=== PATIENT | female | born 1965 | race Caucasian/White ===

== ENCOUNTER → 2016-12-19 | Outpatient (CLI) | payer OTHER | LOC: CCC 07:18 | DX: E03.9 Hypothyroidism, unspecified (principal) | CPT/HCPCS: 36415; 84443 ==

== ENCOUNTER → 2017-01-29 | Outpatient (CLI) | payer OTHER | LOC: CCC 07:57 | DX: E03.9 Hypothyroidism, unspecified (principal) | CPT/HCPCS: 36415; 84443 ==

== ENCOUNTER → 2017-04-16 | Outpatient (CLI) | payer OTHER ==
[2017-04-16 09:07] LABS: THYROID STIMULATING HORMONE 2.46 uIU/mL (0.47-4.68)
== END ==
LOC: CCC 07:14
DX: E03.9 Hypothyroidism, unspecified (principal)
CPT/HCPCS: 36415; 84439; 84443

== ENCOUNTER → 2017-04-25 | Outpatient (CLI) | payer OTHER ==
--- NOTE | 2017-04-25 13:08 | RADIOLOGY REPORT (SQ) ---
EXAM DESCRIPTION: FOOT RIGHT COMPLETE COMPLETED DATE/TIME: 04/25/2017 11:06 am REASON FOR STUDY: PAIN IN RIGHT ANKLE AND JOINTS OF RIGHT FOOT M25.571 PAIN IN RIGHT ANKLE AND JOIN TS OF RIGHT FOOT COMPARISON: None. NUMBER OF VIEWS: Three views. TECHNIQUE: AP, lateral and oblique radiographic images acquired of the right foot. LIMITATIONS: None. FINDINGS: MINERALIZATION: Normal. BONES: No acute fracture or dislocation. No worrisome bone lesions. JOINTS: No effusions. SOFT TISSUES: Diffuse dorsal right foot soft tissue swelling. No foreign body. OTHER: No other significant finding. IMPRESSION: Diffuse dorsal right foot soft tissue swelling. No underlying fracture. No radiopaque foreign body or soft tissue gas TECHNICAL DOCUMENTATION: JOB ID: [id number] [employer]- All Rights Reserved
== END ==
LOC: OD 10:50
DX: M25.571 Pain in right ankle and joints of right foot (principal); M79.89 Other specified soft tissue disorders; W17.89XA Other fall from one level to another, initial encounter

== ENCOUNTER → 2018-10-17 | Outpatient (CLI) | payer OTHER ==
[2018-10-17 09:54] LABS: ABSOLUTE EOSINOPHILS # (AUTO) 0.2 10^3/uL (0.0-0.6); ABSOLUTE MONOCYTES (AUTO) 0.4 10^3/uL (0.1-1.4); ABSOLUTE NEUT (AUTO) 4.9 10^3/uL (1.7-8.2); BASOPHILS % (AUTO) 0.3 % (0-2); EOSINOPHILS % (AUTO) 2.1 % (0-6); HEMATOCRIT 39.1 % (36.0-47.0); HEMOGLOBIN 13.2 g/dL (12.0-15.5); LYMPHOCYTES % (AUTO) 26.6 % (13-45); MEAN CORPUSCULAR HEMOGLOBIN 28.7 pg (27.0-33.4); MEAN CORPUSCULAR HGB CONC 33.7 g/dL (32.0-36.0); MEAN CORPUSCULAR VOLUME 85 fl (80-97); MONOCYTES % (AUTO) 5.7 % (3-13); PLATELET COUNT 277 10^3/uL (150-450); RED CELL DISTRIBUTION WIDTH 13.9 % (11.5-14.0); SEGMENTED NEUTROPHILS % (AUTO) 65.3 % (42-78); TOTAL CELLS COUNTED % (AUTO) 100 %; WHITE BLOOD COUNT 7.6 10^3/uL (4.0-10.5)
[2018-10-17 10:06] LABS: BLOOD UREA NITROGEN 14 mg/dL (7-20); CHLORIDE 105 mmol/L (98-107); GLUCOSE 89 mg/dL (75-110); POTASSIUM 4.6 mmol/L (3.6-5.0)
[2018-10-17 10:07] LABS: ALANINE AMINOTRANSFERASE 10 U/L (9-52); ALBUMIN 3.8 g/dL (3.5-5.0); ALKALINE PHOSPHATASE 72 U/L (38-126); ANION GAP 8 (5-19); ASPARTATE AMINO TRANSFERASE 16 U/L (14-36); BILIRUBIN,DIRECT 0.2 mg/dL (0.0-0.4); BILIRUBIN,TOTAL 0.3 mg/dL (0.2-1.3); CARBON DIOXIDE 28 mmol/L (22-30); CHOLESTEROL 210.73 mg/dL (0-200); SODIUM 140.7 mmol/L (137-145); TOTAL PROTEIN 6.3 g/dL (6.3-8.2); TRIGLYCERIDES 169 mg/dL (<150)
[2018-10-17 10:18] LABS: DIRECT LDL 150 mg/dL (<100)
[2018-10-17 10:19] LABS: VLDL CHOLESTEROL 33.8 mg/dL (10-31)
== END ==
LOC: OD 08:34
DX: E03.8 Other specified hypothyroidism (principal)
CPT/HCPCS: 36415; 80053; 80061; 83036; 84443; 85025

== ENCOUNTER → 2018-10-24 | Outpatient (CLI) | payer OTHER ==
--- NOTE | 2018-10-24 12:07 | RADIOLOGY REPORT (SQ) ---
EXAM DESCRIPTION: KNEE RIGHT 4 VIEWS COMPLETED DATE/TIME: 10/24/2018 9:35 am REASON FOR STUDY: PAIN IN RIGHT KNEE M25.561 PAIN IN RIGHT KNEE COMPARISON: None. NUMBER OF VIEWS: Four views. TECHNIQUE: AP, lateral, and both oblique radiographic images acquired of the right knee. LIMITATIONS: None. FINDINGS: MINERALIZATION: Normal. BONES: No acute fracture or dislocation. No worrisome bone lesions. JOINT: No effusion. SOFT TISSUES: No soft tissue swelling. No radio-opaque foreign body. OTHER: No other significant finding. IMPRESSION: NEGATIVE STUDY OF THE RIGHT KNEE. NO RADIOGRAPHIC EVIDENCE OF ACUTE INJURY. TECHNICAL DOCUMENTATION: JOB ID: [id number] [employer]- All Rights Reserved Reading location - IP/workstation name: [email or web address]
== END ==
LOC: CCC 09:14
DX: M25.561 Pain in right knee (principal)

== ENCOUNTER 2020-03-13 12:52 | Emergency (ER) | payer OTHER ==
[2020-03-13] MEDS ORDERED: OXYCODONE-ACETAMINOPHEN 5-325 MG TABLET PO ONE (13:06)
--- NOTE | 2020-03-13 13:07 | ER Document Report ---
HPI - HPI Time Seen by Provider: 03/13/20 13:05 Pain Level: 3 Past Medical History - Social History Smoking Status: Never Smoker Chew tobacco use (# tins/day): No Frequency of alcohol use: None Drug Abuse: None Patient has homicidal ideation: No Vertical Provider Document - INFECTION CONTROL TRAVEL OUTSIDE OF THE [place] IN LAST 30 DAYS: No Course - Vital Signs Vital signs: Temp Pulse Resp BP Pulse Ox 98.4 F 72 20 127/70 H 97 03/13/20 13:02 03/13/20 13:00 03/13/20 13:00 03/13/20 13:00 03/13/20 13:00 Discharge - Discharge Referrals: [facility] [[facility] Provider] - Follow up as needed
[2020-03-13] MEDS ORDERED: KETOROLAC TROMETHAMINE INJ/PF 30 MG/1 ML SDV IV ONE (13:40)
[2020-03-13] MEDS ORDERED: NORMAL SALINE 1000 ML 1,000 ML IV ONE (13:40)
--- NOTE | 2020-03-13 13:46 | RADIOLOGY REPORT (SQ) ---
EXAM DESCRIPTION: FOREARM LEFT COMPLETED DATE/TIME: 03/13/2020 12:27 pm REASON FOR STUDY: fall, bone tenderness COMPARISON: None. NUMBER OF VIEWS: Two views. TECHNIQUE: Two radiographic images acquired of the left forearm, including elbow and wrist in at [facility] one projection. LIMITATIONS: None. FINDINGS: MINERALIZATION: Normal. BONES: Acute horizontal fractures through the mid to distal midshaft radius and ulna. Over riding of the radial fracture approximately 1.5 cm. Radial angulation of the distal fracture fragment. There is a nondisplaced fracture of the ulnar styloid process. SOFT TISSUES: Soft tissue swelling. No radiopaque foreign body. OTHER: No other significant finding. IMPRESSION: Acute fractures through the mid to distal midshaft radius and ulna. Overriding and mild angulation of the radius. Acute fracture of the ulnar styloid process, nondisplaced. TECHNICAL DOCUMENTATION: JOB ID: [id number] 2010 [employer]- All Rights Reserved Reading location - IP/workstation name: [email or web address]
--- NOTE | 2020-03-13 13:58 | ER Document Report ---
ED Extremity Problem, Upper - General Chief Complaint: Arm Pain Stated Complaint: FALL/LEFT ARM PAIN,SWELLING Time Seen by Provider: 03/13/20 13:05 Primary Care Provider: MARCO A PARISI MD [ACTIVE PROVISIONAL STAFF] - Follow up in 3-5 days (Call Sunday to schedule an appointment this week.) Mode of Arrival: Ambulatory Information source: Patient Notes: This 54-year-old female patient comes emergency room with left forearm pain after sustaining a fall when she tripped over a neighbor's dog. She complains of severe pain to the mid forearm, some pain at the wrist. She also has numbness to all of the fingers with the fifth finger being slightly less numb than fingers 1 through 4. TRAVEL OUTSIDE OF THE [place] 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 Lives with: Alone Family History: Reviewed & Not Pertinent Patient has homicidal ideation: No Endocrine Medical History: Reports: Hx Hypothyroidism Past Surgical History: Reports: Hx Cholecystectomy, Hx Tubal Ligation Review of Systems - Review of Systems Constitutional: No symptoms reported EENT: No symptoms reported Cardiovascular: No symptoms reported Respiratory: No symptoms reported Gastrointestinal: No symptoms reported Genitourinary: No symptoms reported Female Genitourinary: Post menopausal Musculoskeletal: No symptoms reported Skin: No symptoms reported Hematologic/Lymphatic: No symptoms reported Neurological/Psychological: No symptoms reported Physical Exam - Vital signs Vitals: Temp Pulse Resp BP Pulse Ox 98.4 F 72 20 127/70 H 97 03/13/20 13:00 03/13/20 13:00 03/13/20 13:00 03/13/20 13:00 03/13/20 13:00 Interpretation: Normal - General General appearance: Alert, Anxious In distress: Mild - HEENT Head: Normocephalic, Atraumatic Eyes: Normal Pupils: PERRL - Respiratory Respiratory status: No respiratory distress Breath sounds: Normal - Cardiovascular Rhythm: Regular Heart sounds: Normal auscultation Murmur: No - Abdominal Inspection: Normal Tenderness: Nontender - Back Back: Normal - Extremities General upper extremity: Other General lower extremity: Normal inspection Forearm: Tender - Tender swelling and palpable deformity to the mid radial forearm. Wrist: Tender - There is tender swelling to the left ulnar wrist. Radial pulse is intact. Hand: Other - There is numbness in the median nerve distribution of the left hand. The first second and third fingers are very numb as is the radial side of the fourth finger. She states she feels some numbness to the ulnar side of the fourth finger and the fifth finger, but on repeat exams it is quite obvious that it is median nerve distribution to her numbness. - Neurological Neuro grossly intact: Yes - Psychological Associated symptoms: Normal affect, Normal mood - Skin Skin Temperature: Warm Skin Moisture: Dry Skin Color: Normal Course - Re-evaluation Re-evalutation: 03/13/20 14:57 A modified sugar tong splint was placed by the PCT with my help. Patient was unable to flex at the elbow due to pain caused by movement in the distal radius. This required the splint to be placed as a piece of the OCL over the dorsal and over the volar forearms to include the wrist and hand. A sling was applied which allowed support of the forearm without forcing the patient to flex at the elbow. She did have numbness to her hand in the median nerve distribution, maintained good capillary refill. - Vital Signs Vital signs: Temp Pulse Resp BP Pulse Ox 98.4 F 72 20 127/70 H 97 03/13/20 13:02 03/13/20 13:00 03/13/20 13:00 03/13/20 13:00 03/13/20 13:00 - Diagnostic Test Radiology reviewed: Image reviewed, Reports reviewed - Acute fractures through the mid to distal midshaft radius and ulna. Overriding and mild angulation of the radius. Acute nondisplaced fracture of the ulnar styloid process. - Consults Dr. Parisi Time consulted: 13:50 Consulted provider: follow-up in office - Call the office Sunday morning for an appointment this week. Discharge - Discharge Clinical Impression: Fracture of forearm, distal, left, closed Qualifiers: Encounter type: initial encounter Qualified Code(s): S52.92XA - Unspecified fracture of left forearm, initial encounter for closed fracture Median nerve injury Qualifiers: Encounter type: initial encounter Location of peripheral nerve injury: forearm Laterality: left Qualified Code(s): S54.12XA - Injury of median nerve at forearm level, left arm, initial encounter Condition: Stable Disposition: HOME, SELF-CARE Additional Instructions: Fractured Radius and Ulna: Both bones of the forearm, the radius and the ulna, are fractured. This type of fracture is typically caused by falling onto the outstretched hand. A splint is used to protect the fractures. For the first few days after the injury, the arm should be elevated and ice packed. Most often, a splint is used first, with a cast later on. Healing takes from four to eight weeks, depending on the age of the patient and the seriousness of the broken bones. Your doctor has explained the treatment plan. It's important that you follow up as instructed to prevent complications. Call the doctor or return at once if severe pain or swelling occur, or if the hand becomes numb, swollen, or discolored. * Elevate your hand above your heart is much as possible. Use ice packs for the first few days to help reduce swelling. Take ibuprofen 600 mg every 8 hours. Take the pain medication as prescribed as needed. Keep the splint clean and dry. Call Dr. Parisi in [place] at on Sunday to schedule an appointment this week. RETURN TO THE EMERGENCY ROOM IF ANY NEW OR WORSENING SYMPTOMS. Prescriptions: Oxycodone HCl/Acetaminophen [Percocet 5-325 mg Tablet] 1 tab PO ASDIR PRN #20 tablet PRN Reason: Referrals: MARCO A PARISI MD [ACTIVE PROVISIONAL STAFF] - Follow up in 3-5 days (Call Sunday to schedule an appointment this week.)
[2020-03-13] MEDS ORDERED: ONDANSETRON HCL INJ/PF 4 MG/2 ML SDV IV ONE (14:11)
[2020-03-13] MEDS ORDERED: FENTANYL CITRATE INJ/PF 100 MCG/2 ML AMPUL IV ONE (14:11)
[2020-03-13 15:20] VITALS: BP 141/81
== END 2020-03-13 15:25 | disposition home or self-care (01) ==
LOC: ER 12:52
PROC: 2W3DX1Z Immobilization of Left Lower Arm using Splint (ICD-10-PCS; principal; 2020-03-13)
DX: S52.92XA Unspecified fracture of left forearm, initial encounter for closed fracture (principal); S54.12XA Injury of median nerve at forearm level, left arm, initial encounter; M79.602 Pain in left arm; M79.89 Other specified soft tissue disorders; M79.632 Pain in left forearm; R20.0 Anesthesia of skin; W01.0XXA Fall on same level from slipping, tripping and stumbling without subsequent striking against object, initial encounter; Z88.1 Allergy status to other antibiotic agents; Z88.0 Allergy status to penicillin
CPT/HCPCS: 99283; 96361; 96374; 96375; 73090; 29125; J3010; J1885; J2405; J7030

== ENCOUNTER 2020-03-23 12:54 | Day surgery (SDC) | payer SELFPAY, OTHER ==
[~2020-03-23 12:54] MED LIST: CEFAZOLIN SODIUM 2 GM in DEXTROSE 5%-WATER 100 ML IV PRN; SUCCINYLCHOLINE CHLORIDE INJ 200 MG/10 ML VIAL ONE
[2020-03-23 14:03] LABS: ABSOLUTE BASOPHILS # (AUTO) 0.1 10^3/uL (0.0-0.2); ABSOLUTE EOSINOPHILS # (AUTO) 0.2 10^3/uL (0.0-0.6); ABSOLUTE MONOCYTES (AUTO) 0.5 10^3/uL (0.1-1.4); BASOPHILS % (AUTO) 0.8 % (0-2); EOSINOPHILS % (AUTO) 2.5 % (0-6); HEMATOCRIT 37.7 % (36.0-47.0); HEMOGLOBIN 12.7 g/dL (12.0-15.5); MEAN CORPUSCULAR HEMOGLOBIN 27.8 pg (27.0-33.4); MEAN CORPUSCULAR HGB CONC 33.8 g/dL (32.0-36.0); MEAN CORPUSCULAR VOLUME 82 fl (80-97); MONOCYTES % (AUTO) 5.6 % (3-13); PLATELET COUNT 271 10^3/uL (150-450); RED BLOOD COUNT 4.59 10^6/uL (3.72-5.28); SEGMENTED NEUTROPHILS % (AUTO) 68.1 % (42-78); TOTAL CELLS COUNTED % (AUTO) 100 %; WHITE BLOOD COUNT 8.9 10^3/uL (4.0-10.5)
[2020-03-23 14:15] LABS: ANION GAP 7 (5-19); BLOOD UREA NITROGEN 16 mg/dL (7-20); CALCIUM 8.9 mg/dL (8.4-10.2); CARBON DIOXIDE 25 mmol/L (22-30); CHLORIDE 106 mmol/L (98-107); GLUCOSE 86 mg/dL (75-110)
[2020-03-23] MEDS ORDERED: MIDAZOLAM 2 MG/2 ML INJ ONE ×2 (15:06→17:19)
[2020-03-23] MEDS ORDERED: FENTANYL CITRATE INJ/PF 100 MCG/2 ML AMPUL ONE ×2 (15:06→17:19)
[2020-03-23] MEDS ORDERED: PROPOFOL INJ 200 MG/20 ML VIAL IV ONE (17:20)
[2020-03-23] MEDS ORDERED: ONDANSETRON HCL INJ/PF 4 MG/2 ML SDV ONE (17:20)
[2020-03-23] MEDS ORDERED: DEXAMETHASONE SOD PHOSPHATE INJ 4 MG/1 ML VIAL ONE (17:20)
--- NOTE | 2020-03-23 17:43 | Progress Note ---
Provider Note Provider Note: Patient seen and evaluated the preoperative holding area. She states her pain has been controlled with ibuprofen other than the numbness and tingling in her fingers have not improved despite loosening patient's bandage. At that point because she continued to have numbness along the median nerve distribution I rec ommended carpal tunnel release intraoperatively. Patient verbalized understanding and consented for additional procedure.
[2020-03-23] MEDS ORDERED: PROMETHAZINE HCL INJ 25 MG/1 ML VIAL IV PRN ×2 (18:34)
[2020-03-23] MEDS ORDERED: MORPHINE SULFATE 10 MG/ML INJ IV PRN ×2 (18:34→20:17)
[2020-03-23] MEDS ORDERED: FENTANYL CITRATE INJ/PF 100 MCG/2 ML AMPUL IV PRN ×3 (18:34)
[2020-03-23] MEDS ORDERED: DIPHENHYDRAMINE HCL 50 MG/ML VIAL IV PRN (18:34)
[2020-03-23] MEDS ORDERED: OXYCODONE-ACETAMINOPHEN 5-325 MG TABLET PO PRN ×3 (18:34→20:17)
[2020-03-23] MEDS ORDERED: ONDANSETRON HCL INJ/PF 4 MG/2 ML SDV IV PRN ×2 (18:34→20:17)
[2020-03-23] MEDS ORDERED: MEPERIDINE HCL/PF INJ 25 MG/1 ML DISP.SYRIN IV PRN (18:34)
--- NOTE | 2020-03-23 20:07 | Discharge Summary ---
Discharge Summary (SDC) - Discharge Final Diagnosis: Left radius/ulnar shaft fracture Date of Surgery: 03/23/20 Discharge Date: 03/23/20 Condition: Good Treatment or Instructions: Schedule Follow Up w/ Dr. Alonzo Mann @ [facility] for [facility] to be seen in 10-14 days or as scheduled [place]: [place]: Social Circle: Ice and elevate Keep splint clean/dry/intact, do not remove. If your fingers become numb please unwrap the Misael wrap but leave the splint in place, if the sensation does not return within 30 minutes please return to the emergency department. May begin finger range of motion attempting to make full fist. Please use ibuprofen (Motrin or Advil) 600-800 mg every 8 hours as needed for pain or fever DO NOT TAKE w/ TORADOL may use once TORADOL complete. You may also use acetaminophen (Tylenol) 1000 mg every 4-6 hours as needed for pain or fever. Please be aware that many medications contain acetaminophen, do not exceed a total of 1000 mg of acetaminophen every 6 hours. If ibuprofen and acetaminophen are not sufficient for your pain you may take the Percocet/[place]. Please be aware that the Percocet/[place] does contain Tylenol. Stool softener of choice when on pain medication. USE OF [id number] IBUPROFEN: Ibuprofen (Advil, Nuprin, Medipren, Motrin IB) is a medication for fever and pain control. In addition, it has anti- inflammatory effects which may be beneficial, especially in the treatment of injuries. It's best to take ibuprofen with food. Persons with ulcer disease or allergy to aspirin should notify their physician of this before taking ibuprofen. Ibuprofen can be given every four to six hours, for a total of four doses daily. Age Pain or fever dose Antiinflammatory dose 6-8 yr 200 mg (1 tab) 200 mg (1 tab) 9-11 yr 200 mg (1 tab) 200-400 mg (1-2 tab) 11-14 yr 200-400 mg (1-2 tab) 400 mg (2 tab) 15-adult 400 mg (2 tab) 600 mg (3 tab) ORAL NARCOTIC MEDICATION: You have been given a prescription for pain control. This medication is a narcotic. It's best taken with food, as nausea can result if taken on an empty stomach. Don't operate machinery or drive within six hours of taking this medication. Do not combine this medicine with alcohol, or with any medication which can cause sedation (such as cold tablets or sleeping pills) unless you get permission from the physician. Narcotics tend to cause constipation. If possible, drink plenty of fluids and eat a diet high in fiber and fruits. Please be aware that prescription narcotics also have the potential for abuse. People become addicted to these medications because of the general sense of wellbeing that they induce. This feeling along with a significant reduction in tension, anxiety, and aggression provides a stimulating seductive quality to these drugs. Once your pain is under control, we encourage you to discard your unused narcotics. Prescriptions: Ketorolac Tromethamine [Toradol 10 mg Tablet] 10 mg PO Q8HP PRN #12 tablet PRN Reason: Oxycodone HCl/Acetaminophen [Percocet 5-325 mg Tablet] 1 tab PO Q6 PRN #25 tab PRN Reason: Referrals: [facility] [Primary Care Provider] - Respiratory Treatments at Home: Deep Breathing/Coughing Discharge Activity: No Lifting Over 10 Pounds, No Lifting/Push/Pulling Report the Following to Your Physician Immediately: Fever over 101 Degrees, Unusual Bleeding, Redness, Swelling, Warmth, Increased Soreness
--- NOTE | 2020-03-23 20:17 | Operative Report ---
Operative Report DATE OF SURGERY: 03/23/20 PREOPERATIVE DIAGNOSIS: Left radius/ulnar shaft fracture POSTOPERATIVE DIAGNOSIS: Same plus median nerve contusion OPERATION: ORIF Left radius/ulnar shaft fracture, placement of Axogen nerve right median nerve SURGEON: ANNABELLE VU ANESTHESIA: GA COMPLICATIONS: None ESTIMATED BLOOD LOSS: Minimal PROCEDURE: Indication for above procedure: 54-year-old female who sustained a fall onto her outstretched left arm. Patient was seen at the emergency room where radiographs demonstrated radius/ulnar shaft fracture. Patient was initially evaluated by an outside provider and later then evaluated by myself. At which point we discussed treatment options including operative versus nonoperative intervention. After discussing risk and benefits joint decision was made to proceed with operative treatment. Also discussed the possibility of open carpal tunnel release if patient's numbness and tingling does not improve. Patient verbalized understanding consented for surgical procedure. Procedure In Detail: Patient was seen and evaluated in the preoperative holding area. The LEFT upper extremity was initialized and marked. Patient received 2g of Ancef IV for bacterial prophylaxis. Patient was taken back to the operative room where transferred to the operative table and placed under general anesthesia. Once they were adequately anesthetized a nonsterile tourniquet was placed on the upper extremity. A surgical team debriefing was performed ensuring all instrumentation was available, the surgical procedure was discussed with possible concerns reviewed. The upper extremity was prepped with chlorhexidine and alcohol and draped in a sterile fashion. A timeout was done identifying correct patient, procedure and extremity everyone in attendance agree with this and verbalized no concerns. The extremity was exsanguinated the tourniquet was inflated to 250 mmHg. Wade approach was utilized. FCR tendon was identified and the sheath released. FCR was retracted in an ulnar direction and pronator quadratus was released. Proximally pronator quadratus was swept from the fracture site and fracture site exposed. Adjacent to the fracture site median nerve was identified and neurolysed there was scarring to the outer epineural layer. Wound was then copiously irrigated with normal saline. Radius fracture was reduced under direct visualization. A Chente long distal radius plate was then secured proximally and distally with tenaculums. C arm flow was obtained confirming reduction of the fracture. Fixation was initially obtained distally in the dynamic hole and then proximally through the static hole. Fixation was completed proximally with an additional locking screw and compression screw. Tenaculum was placed on the distal aspect of the radius plate in order to anatomically reduce the fracture and to ensure adequate length plate required slight maneuvering in the ulnar direction. But once the tenaculum was placed to firmly bring the plate down to bone it was fixated with initial bicortical screw bring the plate down to bone. The remaining holes were then filled with the appropriate sized locking screws drilling to but not through the far cortex. Previous cortex screw was then exchanged for appropriate size locking screw. C- arm fluoroscopy was obtained to confirm adequate reduction of the fracture on AP and lateral projection attention then turned to the ulnar shaft. Longitudinal skin incision was made at the interval within the FCU/ECU blunt dissection was performed. Dorsal ulnar sensory branch was identified and protected. Fracture site was then identified and irrigated with saline. Supraperiosteal dissection was performed proximally and distally. Under direct visualization the fracture was anatomically reduced. A 2.7 mm interfragmentary screw was then placed providing fixation provisionally. A iDoc24 dynamic compression plate was then secured proximally and distally with reduction clamps and C-arm was obtained confirming appropriate placement of the plate and adequate fixation proximally and distally. Distal aspect was further secured with bicortical screw. The proximal aspect the plate was then sutured with a compression screw providing interfragmentary compression at the fracture site. Fixation was then completed with additional cortex screw and locking screw proximally. Fixation was then completed distally with appropriate size cortex screw and locking screw. Wound was then copiously irrigated with normal saline. C-arm fluoroscopy was obtained confirming reduction of the fracture. Patient had full pronation/supination. No crepitus with radiocarpal range of motion. No crepitus with pronation/supination. Mild DRUJ laxity with the wrist in supination but no laxity in neutral or pronation. Wound was copiously irrigated with normal saline. Interval clean the FCU/issue was closed with 3-0 Vicryl suture. Subcutaneous tissues closed with 3-0 Monocryl suture. Skin was closed with running subcuticular 4-0 Monocryl reinforced with Dermabond and Steri-Strips. Attention then turned to median nerve. Under microscope magnification the median nerve was inspected which confirmed small defect within the epineurium but no evidence of transection of the nerve fascicles. There was mild outpouching of the nerve at the defect thus decision was made to proceed with placement of Axogen nerve graft. A 4 mm x 15 mm Axogen nerve wrap was then placed around the defect in question and secured with 8-0 nylon suture under microscope magnification. Wound was then copiously irrigated with normal saline. Printer quadratus was closed with interrupted 3-0 Monocryl suture adequately providing plate coverage. Tourniquet was then deflated. A peripheral bleeding was controlled with bipolar cautery. Subcutaneous tissues were closed with interrupted 3-0 Monocryl suture. Skin was closed with running subcuticular 4 Monocryl reinforced with Dermabond and Steri-Strips. Sponge counts, instrument counts, needle counts were correct. Patient was then awoken from anesthesia. Transferred from the operating room table to the operating room stretcher. There was no intraoperative complications patient tolerated procedure well stable to PACU. Postoperative plan: Patient will follow-up in office in 2 weeks at which point we will obtain radiographs and place patient in a short arm Reddell cast.
[2020-03-23] MEDS ORDERED: OXYCODONE-ACETAMINOPHEN 5-325 MG TABLET ONE (21:01)
[2020-03-23] MEDS ORDERED: KETOROLAC TROMETHAMINE INJ/PF 30 MG/1 ML SDV ONE (21:04)
[2020-03-23 22:21] VITALS: BP 141/68
--- NOTE | 2020-03-24 10:16 | RADIOLOGY REPORT (SQ) ---
EXAM DESCRIPTION: FOREARM LEFT; NO CHG FLUORO IMAGES COMPLETED DATE/TIME: 03/23/2020 7:36 pm REASON FOR STUDY: ORIF L FOREARM COMPARISON: None. FLUOROSCOPY TIME: 44 seconds. 6 images submitted to PACS. TECHNIQUE: Fluoroscopic images of the distal radius and ulnar were obtained intraoperatively during an open reduction and reduction and internal fixation of acute displaced transverse fractures of the mid to distal radius and ulnar diaphyses with placement of fixation plates and screws. LIMITATIONS: None. FINDINGS: Integrated into the Technique. IMPRESSION: IMAGE(S) OBTAINED DURING PROCEDURE. COMMENT: Quality ID [id number]: Final reports for procedures using fluoroscopy that document radiation exp osure indices, or exposure time and number of fluorographic images (if radiation exposure indices are not available) Please consult full operative report of the attending physician for description of the procedure. TECHNICAL DOCUMENTATION: JOB ID: [id number] 2010 [employer]- All Rights Reserved Reading location - IP/workstation name: [email or web address]
--- NOTE | 2020-03-24 10:16 | RADIOLOGY REPORT (SQ) ---
EXAM DESCRIPTION: FOREARM LEFT; NO CHG FLUORO IMAGES COMPLETED DATE/TIME: 03/23/2020 7:36 pm REASON FOR STUDY: ORIF L FOREARM COMPARISON: None. FLUOROSCOPY TIME: 44 seconds. 6 images submitted to PACS. TECHNIQUE: Fluoroscopic images of the distal radius and ulnar were obtained intraoperatively during an open reduction and reduction and internal fixation of acute displaced transverse fractures of the mid to distal radius and ulnar diaphyses with placement of fixation plates and screws. LIMITATIONS: None. FINDINGS: Integrated into the Technique. IMPRESSION: IMAGE(S) OBTAINED DURING PROCEDURE. COMMENT: Quality ID [id number]: Final reports for procedures using fluoroscopy that document radiation exp osure indices, or exposure time and number of fluorographic images (if radiation exposure indices are not available) Please consult full operative report of the attending physician for description of the procedure. TECHNICAL DOCUMENTATION: JOB ID: [id number] 2010 [employer]- All Rights Reserved Reading location - IP/workstation name: [email or web address]
== END 2020-03-23 22:02 | disposition home or self-care (01) ==
LOC: OROUT 12:54
PROVIDERS: ATTEND Orthopaedic Surgery
DX: S52.302A Unspecified fracture of shaft of left radius, initial encounter for closed fracture (principal); S52.202A Unspecified fracture of shaft of left ulna, initial encounter for closed fracture; S64.12XA Injury of median nerve at wrist and hand level of left arm, initial encounter; W19.XXXA Unspecified fall, initial encounter; Z03.818 Encounter for observation for suspected exposure to other biological agents ruled out
CPT/HCPCS: 25575; 64892; 36415; 85025; 87635; 80048; 73090; 01830; C1713 ×11; J2250; J0690; J1100; J3010; J1885; J0330; J2405; J7060; J2704

== ENCOUNTER 2020-04-15 16:04 | Emergency (ER) | payer OTHER ==
--- NOTE | 2020-04-15 17:15 | ER Document Report ---
HPI - HPI Pain Level: 4 Notes: 54-year-old female presents to the emergency room for evaluation from Dr. Alonzo gray's office for concerns of a low-grade fever after she had an ORIF to left forearm after sustaining an acute fracture to the distal midshaft radius and ulnar with some angulation and acute fracture of the ulnar styloid, she has multiple pins put in place and states that they were concerned about osteomyelitis. She states that they did redo her cast today, states that there was no erythema around her forearm however Dr. Vu want her to come to the emergency room for an x-ray to rule out osteomyelitis as well as labs.. Patient states she is not having as much pain as she initially had over a month ago when she sustained a fracture, due to having a low-grade fever she was concerned because she typically states she has a fever of "97 Fahrenheit all the time". Denies any numbness or tingling to her left hand or fingers. Patient had a new plastic glass short vulvar splint placed today at Dr. Vu's office. Denies fevers, chills, chest pain,palpitations, shortness of breath, dyspnea, nausea, vomiting, diarrhea, abdominal pain, hematuria,blurred vision, double vision, loss of vision, speech changes, LH, dizziness, syncope, headaches, wheezing, ST, URI, neck pain, weakness, bowel or bladder dysfunction, saddle anesthesia, numbness or tingling in bilateral upper or lower extremities equally, muscle paralysis, weakness in bilateral upper or lower extremities equally or rash. Denies IV drug use. - CONSTITUTIONAL Constitutional: REPORTS: Fever. DENIES: Chills - MUSCULOSKELETAL Musculoskeletal: REPORTS: Extremity pain Past Medical History - General Information source: Patient - Social History Smoking Status: Never Smoker Frequency of alcohol use: None Drug Abuse: None Family History: Reviewed & Not Pertinent Patient has homicidal ideation: No - Past Medical History Cardiac Medical History: Denies: Hx Coronary Artery Disease, Hx Heart Attack, Hx Hypertension Pulmonary Medical History: Denies: Hx Asthma, Hx Bronchitis, Hx COPD, Hx Pneumonia Neurological Medical History: Denies: Hx Cerebrovascular Accident, Hx Seizures Endocrine Medical History: Reports: Hx Hypothyroidism Musculoskeletal Medical History: Denies Hx Arthritis Past Surgical History: Reports: Hx Cholecystectomy, Hx Orthopedic Surgery - L arm, Hx Tubal Ligation - Immunizations Hx Diphtheria, Pertussis, Tetanus Vaccination: Yes Vertical Provider Document - CONSTITUTIONAL Agree With Documented VS: Yes Exam Limitations: No Limitations General Appearance: WD/WN Notes: MEDICATIONS: I agree with the patient medications as charted by the RN. ALLERGIES: I agree with the allergies as charted by the RN. PAST MEDICAL HISTORY/PAST SURGICAL HISTORY: Reviewed and agree as charted by RN. SOCIAL HISTORY: Reviewed and agree as charted by RN. FAMILY HISTORY: No significant familial comorbid conditions directly related to patient complaint EXAM: Reviewed vital signs as charted by RN. PHYSICAL EXAMINATION: reviewed vital signs by RN GENERAL: Well-appearing, well-nourished and in no acute distress. HEAD: Atraumatic, normocephalic. EYES: Pupils equal round and reactive to light, extraocular movements intact, conjunctiva are normal. ENT: Nares patent, oropharynx clear without exudates. Moist mucous membranes. NECK: Normal range of motion, supple without lymphadenopathy LUNGS: Breath sounds clear to auscultation bilaterally and equal. No wheezes rales or rhonchi. HEART: Regular rate and rhythm without murmurs ABDOMEN: Soft, nontender, nondistended abdomen. No guarding, no rebound. No masses appreciated. Female : deferred Musculoskeletal: Normal range of motion, no pitting or edema. No cyanosis. noted left and a short arm left volar cast. digits in right and left with full aprom. Director Of Litigation + 2 BUE equally. Negative kanavels sign. No vascular compromise.No body crepitus or focal area of TTP. Motor and sensory function of ulnar, radial, medial nerves intact bilaterally and equally. NEUROLOGICAL: Cranial nerves grossly intact. Normal speech, normal gait. Normal sensory, motor exams PSYCH: Normal mood, normal affect. SKIN: Warm, Dry, normal turgor, no rashes or lesions noted. - INFECTION CONTROL TRAVEL OUTSIDE OF THE [place] IN LAST 30 DAYS: No Course - Re-evaluation Re-evalutation: 04/15/20 19:07 Afebrile vital stable no distress. Nurses notes reviewed. CBC negative for leukocytosis or anemia. CMP negative for hepatic or renal dysfunction. No electrolyte disturbances. Left forearm x-ray negative for acute fracture, no osteomyelitis noted. Discussed with patient that she should follow-up with orthopedic podiatrist tomorrow as they wanted her checked out to make sure she did not have any osteomyelitis, no leukocytosis. Discussed cast care with patient. After performing a Medical Screening Examination, I estimate there is LOW risk for OPEN FRACTURE, COMPARTMENT SYNDROME, DEEP VENOUS THROMBOSIS, ACUTE TENDON RUPTURE, or NEUROVASCULAR INJURY thus I consider the discharge disposition reasonable. I have reevaluated this patient multiple times and no significant life threatening changes are noted. The patient and I have discussed the diagnosis and risks, and we agree with discharging home to closely follow-up with their primary doctor or the referral orthopedist with the understanding that symptoms and presentations can change. We also discussed returning to the Emergency Department immediately if new or worsening symptoms occur. We have discussed the symptoms which are most concerning (e.g., changing or worsening pain, numbness, weakness) that necessitate immediate return - Vital Signs Vital signs: Temp Pulse Resp BP Pulse Ox 98.7 F 74 18 131/89 H 96 04/15/20 16:45 04/15/20 16:37 04/15/20 16:37 04/15/20 16:37 04/15/20 16:37 - Laboratory Result Diagrams: 04/15/20 18:19 04/15/20 18:19 Discharge - Discharge Clinical Impression: Left forearm pain Condition: Stable Disposition: HOME, SELF-CARE Instructions: Cast Precautions ([facility]), Fever ([facility]) Additional Instructions: Your labs today as well as your x-ray were normal. Your vitals were normal. He did not have a fever today. Please follow-up with orthopedic podiatrist tomorrow as well as your primary care provider as needed. Take pain medication as prescribed to you. Return immediately for any new or worsening symptoms. Follow up with primary care provider, call tomorrow to make followup appointment. Forms: Return to Work Referrals: [facility] [Primary Care Provider] - Follow up as needed ALONZO VU DO [ACTIVE STAFF] - Follow up as needed ELVIN SANTACRUZ MD [COMMUNITY BASED STAFF] - Follow up as needed
--- NOTE | 2020-04-15 18:41 | RADIOLOGY REPORT (SQ) ---
EXAM DESCRIPTION: FOREARM LEFT COMPLETED DATE/TIME: 04/15/2020 6:22 pm REASON FOR STUDY: fever, per Dr. Mann, r/o osteo, +pain COMPARISON: AP and lateral views of the left from from June 13 NUMBER OF VIEWS: Two views. TECHNIQUE: Two radiographic images acquired of the left forearm, including elbow and wrist in at [facility] one projection. LIMITATIONS: Evaluation is limited due to the presence of plaster material. FINDINGS: MINERALIZATION: Normal. BONES: The ORIF hardware in the mid to distal radius and ulna is intact. The alignment of the fractu res of the mid to distal radial and ulnar diaphysis is anatomic. There is no acute fracture. SOFT TISSUES: No abnormality. OTHER: No other finding. IMPRESSION: Status post recent ORIF of fractures of the mid to distal radial and ulnar diaphysis. T he alignment of the fracture is anatomic. There is no acute fracture. TECHNICAL DOCUMENTATION: JOB ID: [id number] 2010 [employer]- All Rights Reserved Reading location - IP/workstation name: [email or web address]
[2020-04-15 18:47] LABS: ABSOLUTE EOSINOPHILS # (AUTO) 0.2 10^3/uL (0.0-0.6); ABSOLUTE LYMPHOCYTES (AUTO) 2.9 10^3/uL (0.5-4.7); ABSOLUTE MONOCYTES (AUTO) 0.6 10^3/uL (0.1-1.4); ABSOLUTE NEUT (AUTO) 6.7 10^3/uL (1.7-8.2); BASOPHILS % (AUTO) 0.3 % (0-2); EOSINOPHILS % (AUTO) 1.6 % (0-6); HEMATOCRIT 39.4 % (36.0-47.0); HEMOGLOBIN 13.3 g/dL (12.0-15.5); LYMPHOCYTES % (AUTO) 27.6 % (13-45); MEAN CORPUSCULAR HEMOGLOBIN 27.7 pg (27.0-33.4); MEAN CORPUSCULAR HGB CONC 33.7 g/dL (32.0-36.0); MEAN CORPUSCULAR VOLUME 82 fl (80-97); MONOCYTES % (AUTO) 6.1 % (3-13); PLATELET COUNT 303 10^3/uL (150-450); RED BLOOD COUNT 4.79 10^6/uL (3.72-5.28); RED CELL DISTRIBUTION WIDTH 14.4 % (11.5-14.0); SEGMENTED NEUTROPHILS % (AUTO) 64.4 % (42-78); TOTAL CELLS COUNTED % (AUTO) 100 %; WHITE BLOOD COUNT 10.4 10^3/uL (4.0-10.5)
[2020-04-15 18:55] LABS: ALBUMIN 4.4 g/dL (3.5-5.0); ALKALINE PHOSPHATASE 87 U/L (38-126); ANION GAP 6 (5-19); ASPARTATE AMINO TRANSFERASE 24 U/L (14-36); BILIRUBIN,TOTAL 0.3 mg/dL (0.2-1.3); BLOOD UREA NITROGEN 16 mg/dL (7-20); CALCIUM 9.3 mg/dL (8.4-10.2); CARBON DIOXIDE 25 mmol/L (22-30); CHLORIDE 106 mmol/L (98-107); GLUCOSE 106 mg/dL (75-110); POTASSIUM 4.2 mmol/L (3.6-5.0); TOTAL PROTEIN 7.3 g/dL (6.3-8.2)
[2020-04-15 19:18] VITALS: BP 130/72
== END 2020-04-15 19:17 | disposition home or self-care (01) ==
LOC: ER 16:04
DX: M79.602 Pain in left arm (principal); R50.9 Fever, unspecified; S52.302E Unspecified fracture of shaft of left radius, subsequent encounter for open fracture type I or II with routine healing; X58.XXXD Exposure to other specified factors, subsequent encounter
CPT/HCPCS: 36415; 80053; 83605; 85025; 99283

== ENCOUNTER → 2020-05-19 | Outpatient (CLI) | payer OTHER ==
[2020-05-19 09:37] LABS: ABSOLUTE BASOPHILS # (AUTO) 0.1 10^3/uL (0.0-0.2); ABSOLUTE EOSINOPHILS # (AUTO) 0.2 10^3/uL (0.0-0.6); ABSOLUTE LYMPHOCYTES (AUTO) 2.3 10^3/uL (0.5-4.7); ABSOLUTE MONOCYTES (AUTO) 0.5 10^3/uL (0.1-1.4); ABSOLUTE NEUT (AUTO) 5.3 10^3/uL (1.7-8.2); BASOPHILS % (AUTO) 0.9 % (0-2); EOSINOPHILS % (AUTO) 1.9 % (0-6); HEMOGLOBIN 11.5 g/dL (12.0-15.5); LYMPHOCYTES % (AUTO) 27.5 % (13-45); MEAN CORPUSCULAR HEMOGLOBIN 27.6 pg (27.0-33.4); MEAN CORPUSCULAR HGB CONC 33.9 g/dL (32.0-36.0); MEAN CORPUSCULAR VOLUME 81 fl (80-97); MONOCYTES % (AUTO) 6.1 % (3-13); PLATELET COUNT 238 10^3/uL (150-450); RED BLOOD COUNT 4.19 10^6/uL (3.72-5.28); RED CELL DISTRIBUTION WIDTH 15.6 % (11.5-14.0); SEGMENTED NEUTROPHILS % (AUTO) 63.6 % (42-78); TOTAL CELLS COUNTED % (AUTO) 100 %; WHITE BLOOD COUNT 8.3 10^3/uL (4.0-10.5)
[2020-05-19 09:58] LABS: ALBUMIN 3.9 g/dL (3.5-5.0); ALKALINE PHOSPHATASE 72 U/L (38-126); ANION GAP 5 (5-19); ASPARTATE AMINO TRANSFERASE 18 U/L (14-36); BILIRUBIN,TOTAL 0.2 mg/dL (0.2-1.3); BLOOD UREA NITROGEN 14 mg/dL (7-20); CALCIUM 8.8 mg/dL (8.4-10.2); CARBON DIOXIDE 28 mmol/L (22-30); CHLORIDE 104 mmol/L (98-107); CHOLESTEROL 259.35 mg/dL (0-200); GLUCOSE 103 mg/dL (75-110); POTASSIUM 3.9 mmol/L (3.6-5.0); TOTAL PROTEIN 6.5 g/dL (6.3-8.2); TRIGLYCERIDES 474 mg/dL (<150)
[2020-05-19 10:09] LABS: DIRECT LDL 120 mg/dL (<100)
== END ==
LOC: CCC 08:54
PROVIDERS: ATTEND Internal Medicine
DX: E03.9 Hypothyroidism, unspecified (principal)
CPT/HCPCS: 36415; 80053; 80061; 83036; 84443; 85025